=== PATIENT | male | born 1980 | race African-American/Black ===

== ENCOUNTER 2017-05-29 19:18 | Emergency (ER) | payer OTHER ==
[~2017-05-29] VITALS: Ht 180.3 cm; Wt 68.0 kg
[2017-05-29] MEDS ORDERED: MORPHINE SULFATE 4 MG/ML SYR/VIAL IV ONE (20:15)
[2017-05-29] MEDS ORDERED: ACETAMINOPHEN 500 MG TAB PO ONE (20:15)
[2017-05-29] MEDS ORDERED: ONDANSETRON HCL 4 MG/2 ML VIAL IV ONE (20:15)
[2017-05-29] MEDS ORDERED: GENTAMICIN OPTH sol 0.3% 5ml EACHEYE ONE (20:15)
[2017-05-29 21:14] LABS: Urine Bacteria NONE SEEN /hpf (None Seen); Urine Blood Negative /uL (Negative); Urine Specific Gravity 1.002 (1.001-1.035); Urine WBC <1 /hpf (0 - 3)
[2017-05-29 21:35] VITALS: BP 111/84
[2017-05-29 21:40] LABS: Amphetamine Screen, Urine NEGATIVE (NEGATIVE); Barbiturate Scree,Urine NEGATIVE (NEGATIVE); Benzodiazephine Screen, Urine NEGATIVE (NEGATIVE); Cannabinoid Screen, Urine NEGATIVE (NEGATIVE); Cocaine Screen, Urine NEGATIVE (NEGATIVE); Opiate Scree,Urine NEGATIVE (NEGATIVE); Phencyclidine Screen, Urine NEGATIVE (NEGATIVE)
== END 2017-05-29 22:33 | disposition home or self-care (01) ==
LOC: ER 19:18
DX: S05.92XA Unspecified injury of left eye and orbit, initial encounter (principal); S05.91XA Unspecified injury of right eye and orbit, initial encounter; H10.9 Unspecified conjunctivitis; X58.XXXA Exposure to other specified factors, initial encounter; Y93.89 Activity, other specified; Y99.8 Other external cause status; Y92.89 Other specified places as the place of occurrence of the external cause
CPT/HCPCS: 80307; 81001